=== PATIENT | male | born 1935 | race Caucasian/White ===

== ENCOUNTER 2024-04-04 15:01 | Observation (INO) ==
--- NOTE | 2024-04-04 15:13 | DR.AMS ---
HPI Time Seen Time Seen by Provider: 04/04/24 15:13 COVID-19 Coronavirus risk:travel/contact w/high risk person: No Has patient experienced Coronavirus symptoms: No PMH PMH Past Medical History: Anxiety, Diabetes, Gout and [place] Past Surgical History: Yes Surgical History: Angioplasty/Stents Family History Family Medical History: [place], Heart Failure and Hypertension Social History Do you use any recreational Drugs:: No PE Vitals Vital Signs: Temp Pulse Resp BP Pulse Ox O2 Del Method 04/04/24 19:45 62 04/04/24 19:30 58 L 24 04/04/24 19:30 114/58 04/04/24 19:15 62 22 92 L 04/04/24 19:00 60 24 92 L 04/04/24 19:00 120/75 04/04/24 18:45 56 L 19 93 L 04/04/24 18:30 56 L 24 04/04/24 18:30 116/57 04/04/24 18:15 59 L 25 H 96 04/04/24 18:00 123/58 04/04/24 18:00 123/58 04/04/24 18:00 57 L 22 95 04/04/24 17:45 56 L 24 04/04/24 17:30 56 L 20 95 04/04/24 17:30 116/56 04/04/24 17:15 57 L 20 04/04/24 17:00 57 L 19 04/04/24 17:00 123/58 04/04/24 16:45 56 L 22 95 04/04/24 16:33 56 L 19 98 04/04/24 16:33 139/61 04/04/24 16:32 57 L 97 04/04/24 16:15 59 L 19 95 04/04/24 16:00 57 L 24 92 L 04/04/24 16:00 105/59 04/04/24 15:45 60 93 L 04/04/24 15:30 103/57 04/04/24 15:30 58 L 97 04/04/24 15:29 59 L 96 04/04/24 15:13 98.2 F 61 20 105/59 96 Room Air ROR Labs Reviewed 04/04/24 15:20 04/04/24 15:20 Laboratory: WBC 5.1 X10^3/uL (3.6-10.0) 04/04/24 15:20 RBC 4.24 X10^6/uL (4.7-6.0) L 04/04/24 15:20 Hgb 13.3 g/dL (13.5-18.0) L 04/04/24 15:20 Hct 40.1 % (42.0-54.0) L 04/04/24 15:20 MCV 94.5 fL (80.0-100.0) 04/04/24 15:20 MCH 31.4 pg (27.0-34.0) 04/04/24 15:20 MCHC 33.2 g/dL (33.0-35.0) 04/04/24 15:20 RDW 14.0 % (11.6-16.5) 04/04/24 15:20 Plt Count 141 X10^3/uL (150.0-450.0) L 04/04/24 15:20 MPV 8.3 fL (7.4-11.0) 04/04/24 15:20 Neut % (Auto) 60.8 % (42.0-75.0) 04/04/24 15:20 Lymph % (Auto) 23.5 % (21.0-51.0) 04/04/24 15:20 [place] % (Auto) 13.7 % (0.0-13.0) H 04/04/24 15:20 Eos % (Auto) 1.1 % (0.9-2.9) 04/04/24 15:20 Baso % (Auto) 0.9 % (0.2-1.0) 04/04/24 15:20 Neut # (Auto) 3.1 x10^3/uL (2.2-4.8) 04/04/24 15:20 Lymph # (Auto) 1.2 X10^3/uL (1.3-2.9) L 04/04/24 15:20 [place] # (Auto) 0.7 x10^3/uL (0.3-0.8) 04/04/24 15:20 Eos # (Auto) 0.1 x10^3/uL (0.0-0.2) 04/04/24 15:20 Baso # (Auto) 0.0 X10^3/uL (0.0-0.1) 04/04/24 15:20 Absolute Nucleated RBC 0.1 /100WBC 04/04/24 15:20 Sodium 138 mmol/L (136-145) 04/04/24 15:20 Corrected Sodium 139 mmol/L (136-145) 04/04/24 15:20 Potassium 4.5 mmol/L (3.5-5.1) 04/04/24 15:20 Chloride 103 mmol/L (98-107) 04/04/24 15:20 Carbon Dioxide 32.4 mmol/L (21-32) H 04/04/24 15:20 BUN 17 mg/dL (7-18) 04/04/24 15:20 Creatinine 1.54 mg/dL (0.70-1.30) H 04/04/24 15:20 Est GFR (MDRD) Af Amer 55 (>60) L 04/04/24 15:20 Est GFR (MDRD) Non-Af 46 (>60) L 04/04/24 15:20 Glucose 133 mg/dL (65-99) H 04/04/24 15:20 Calcium 8.6 mg/dL (8.5-10.1) 04/04/24 15:20 Corrected Calcium 9.4 mg/dL (8.5-10.1) 04/04/24 15:20 Magnesium 1.6 mg/dL (2.0-2.9) L 04/04/24 18:00 Total Bilirubin 0.40 mg/dL (0.2-1.0) 04/04/24 15:20 AST 15 Units/L (15-37) 04/04/24 15:20 ALT 20 Units/L (12-78) 04/04/24 15:20 Alkaline Phosphatase 90 Units/L (46-116) 04/04/24 15:20 Creatine Kinase 50 Units/L (39-308) 04/04/24 18:36 Troponin I High Sens 9.8 ng/L (4.0-60.0) 04/04/24 18:36 B-Natriuretic Peptide 79.6 pg/mL (0-79) H 04/04/24 15:20 Total Protein 6.2 g/dL (6.4-8.2) L 04/04/24 15:20 Albumin 3.0 g/dL (3.4-5.0) L 04/04/24 15:20 Globulin 3.2 g/dL (2.5-4.5) 04/04/24 15:20 Albumin/Globulin Ratio 0.9 Ratio (1.1-2.1) L 04/04/24 15:20 SARS-CoV-2 (PCR) Positive (NEGATIVE) A 04/04/24 15:13 Influenza Type A (PCR) Negative (NEGATIVE) 04/04/24 15:13 Influenza Type B (PCR) Negative (NEGATIVE) 04/04/24 15:13 RSV (PCR) Negative (NEGATIVE) 04/04/24 15:13 Opioid Opioid Risk Tool Age (Jimbo box if 16-45): No History of Preadolescent Sexual Abuse: No Total: 0 Total Score Risk Category: Low Risk Copyright: Yimi WANG predicting aberrant behaviors Discharge Plan Diagnosis Discharge Problem: Ataxia, Generalized muscle weakness, COVID-19 virus infection Discharge Plan Patient Disposition: 01 HOME, SELF-CARE Condition: Stable Orders to Discharge Patient Discharge Orders: Transfer (Routine); Ordered 04/04/24 Ordered By: JOSE DANIEL PETE
--- NOTE | 2024-04-04 15:40 | EKG ---
Test Reason : weakness Blood Pressure : */* mmHG Vent. Rate : 58 BPM Atrial Rate : 58 BPM P-R Int : 264 ms QRS Dur : 148 ms QT Int : 444 ms P-R-T Axes : 15 -65 19 degrees QTc Int : 435 ms Sinus bradycardia with 1st degree AV block Left axis deviation Right bundle branch block Abnormal ECG When compared with ECG of 12-MAR-2023 15:49, QT has shortened Confirmed by Chele Guillaume MD ([id number]) on 04/05/2024 7:02:32 AM Referred By: Confirmed By: Chele Guillaume MD
[2024-04-04 15:48] LABS: BASOPHILS % (AUTO) 0.9 % (0.2-1.0); EOSINOPHILS # (AUTO) 0.1 x10^3/uL (0.0-0.2); EOSINOPHILS % (AUTO) 1.1 % (0.9-2.9); HEMATOCRIT 40.1 % (42.0-54.0); HEMOGLOBIN 13.3 g/dL (13.5-18.0); LYMPHOCYTES # (AUTO) 1.2 X10^3/uL (1.3-2.9); LYMPHOCYTES % (AUTO) 23.5 % (21.0-51.0); MEAN CORPUSCULAR HEMOGLOBIN 31.4 pg (27.0-34.0); MEAN CORPUSCULAR HGB CONC 33.2 g/dL (33.0-35.0); MEAN CORPUSCULAR VOLUME 94.5 fL (80.0-100.0); MEAN PLATELET VOLUME 8.3 fL (7.4-11.0); MONOCYTES # (AUTO) 0.7 x10^3/uL (0.3-0.8); MONOCYTES % (AUTO) 13.7 % (0.0-13.0); NEUTROPHILS # (AUTO) 3.1 x10^3/uL (2.2-4.8); NEUTROPHILS % (AUTO) 60.8 % (42.0-75.0); PLATELET COUNT 141 X10^3/uL (150.0-450.0); RED BLOOD COUNT 4.24 X10^6/uL (4.7-6.0); WHITE BLOOD COUNT 5.1 X10^3/uL (3.6-10.0)
[2024-04-04 15:52] LABS: CALCIUM 8.6 mg/dL (8.5-10.1); CARBON DIOXIDE 32.4 mmol/L (21-32); COR CA(FOR HYPOALB) 9.4 mg/dL (8.5-10.1); CREATININE 1.54 mg/dL (0.70-1.30); MAGNESIUM 1.5 mg/dL (2.0-2.9); POTASSIUM 4.5 mmol/L (3.5-5.1); TOTAL PROTEIN 6.2 g/dL (6.4-8.2)
[2024-04-04] MEDS: NS 1,000 ML IV 1,000 ML IV SCH (16:09)
--- NOTE | 2024-04-04 16:51 | CT ---
EXAM: HEAD CT WITHOUT INTRAVENOUS CONTRASTHISTORY: Left-sided weakness and sluggishness. Intermittent confusion.TECHNIQUE: Spiral axial CT images are obtained through the brain without the administration of intravenous contrast. Additional sagittal and coronal reformatted images are reconstructed.DOSIMETRY: Total DLP 893.84 mGycm; CTDI 48 mGyCOMPARISON: Head CT dated March 12, 2023.FINDINGS:There are parenchymal lucencies within the white matter tracks of the centrum semiovale, consistent with chronic sequela of atherosclerotic microvascular ischemic disease. Severe atherosclerosis of the intracranial ICAs and vertebral arteries is seen. Consider follow-up MRA as clinically warranted.There is diffuse cerebral cortical atrophy. Nonspecific pineal gland calcification is seen. The centrum semiovale, basal ganglia, cerebellum, and brainstem are otherwise grossly unremarkable for a noncontrast CT scan. There is no acute intracranial hemorrhage, gross acute infarction, mass lesion, midline shift, or hydrocephalus seen. No extra-axial mass or abnormal fluid collection noted.The calvarium is intact. The partially imaged paranasal sinuses, middle ear cavities and mastoid air cells are clear.IMPRESSION:1. 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 Note that small or subtle acute CVAs can be obscured in this radiologic setting. Consider followup MRI with DWI/ADC imaging to rule out occult acute infarction if clinically warranted.2. Severe atherosclerosis of the intracranial ICAs and vertebral arteries is seen. Consider follow-up MRA as clinically warranted.3. No skull fracture, intracranial hemorrhage, mass lesion, midline shift, or hydrocephalus seen.THIS IS AN ELECTRONICALLY VERIFIED FINAL REPORT04/04/2024 4:48 PM - Electronically signed by Mark Lemon MD
[2024-04-04] MEDS: MAGNESIUM SULFATE 1 GRAM/100 mL PREMIX 1 G/100 ML BAG IV SCH (17:50)
--- NOTE | 2024-04-04 19:03 | RAD ---
EXAM:CHEST, 1 VIEWHISTORY:coughing all night states she woke him up around 1100am this morning and noticed he was a little more sluggish than normal with intermittent confusion and not able to walk good;COMPARISON:March 12, 2023TECHNIQUE:Chest radiographic imaging, AP portable projection, 1 imageFINDINGS:No cardiomegaly.No focal airspace disease.No pleural effusion.No pneumothorax.No acute osseous abnormality.IMPRESSION:No imaging findings of acute cardiopulmonary disease.THIS IS AN ELECTRONICALLY VERIFIED FINAL REPORT04/04/2024 6:59 PM - Electronically signed by Sudheer Mauricio MD
[2024-04-04 22:53] LABS: BILIRUBIN,URINE NEGATIVE (NEGATIVE); BLOOD/HEMOGLOBIN,URINE NEGATIVE (NEGATIVE); GLUCOSE, URINE NEGATIVE (NEGATIVE); KETONES,URINE NEGATIVE (NEGATIVE); LEUKOCYTE ESTERASE ,URINE NEGATIVE (NEGATIVE); NITRITES,URINE NEGATIVE (NEGATIVE); PROTEIN,URINE 1+ (NEGATIVE); UROBILINOGEN,URINE NORMAL (NORMAL)
[2024-04-04 22:57] LABS: APPEARANCE,URINE CLEAR (CLEAR); BACTERIA,URINE NEGATIVE /HPF (NEGATIVE); COLOR,URINE PALE YELLOW (YELLOW); RBC,URINE NONE SEEN /HPF (0-3); SQUAMOUS EPITHELIAL CELL,UR RARE /HPF (NEGATIVE)
[2024-04-04 23:25] VITALS: BMI 29.3
[2024-04-05 06:37] LABS: EOSINOPHILS # (AUTO) 0.1 x10^3/uL (0.0-0.2); EOSINOPHILS % (AUTO) 2.4 % (0.9-2.9); HEMATOCRIT 41.2 % (42.0-54.0); HEMOGLOBIN 13.6 g/dL (13.5-18.0); LYMPHOCYTES # (AUTO) 1.5 X10^3/uL (1.3-2.9); LYMPHOCYTES % (AUTO) 33.6 % (21.0-51.0); MEAN CORPUSCULAR HEMOGLOBIN 31.2 pg (27.0-34.0); MEAN CORPUSCULAR HGB CONC 33.1 g/dL (33.0-35.0); MEAN CORPUSCULAR VOLUME 94.4 fL (80.0-100.0); MEAN PLATELET VOLUME 8.2 fL (7.4-11.0); MONOCYTES # (AUTO) 0.8 x10^3/uL (0.3-0.8); MONOCYTES % (AUTO) 19.1 % (0.0-13.0); NEUTROPHILS # (AUTO) 1.9 x10^3/uL (2.2-4.8); NEUTROPHILS % (AUTO) 43.9 % (42.0-75.0); PLATELET COUNT 145 X10^3/uL (150.0-450.0); RED BLOOD COUNT 4.36 X10^6/uL (4.7-6.0); RED CELL DISTRIBUTION WIDTH 14.4 % (11.6-16.5); WHITE BLOOD COUNT 4.4 X10^3/uL (3.6-10.0)
[2024-04-05 07:01] LABS: ALANINE AMINOTRANSFERASE 26 Units/L (12-78); ALBUMIN 2.8 g/dL (3.4-5.0); ALKALINE PHOSPHATASE 88 Units/L (46-116); ASPARTATE AMINO TRANSFERASE 23 Units/L (15-37); BLOOD UREA NITROGEN 14 mg/dL (7-18); CALCIUM 8.6 mg/dL (8.5-10.1); CHLORIDE 106 mmol/L (98-107); COR CA(FOR HYPOALB) 9.6 mg/dL (8.5-10.1); CREATININE 1.44 mg/dL (0.70-1.30); GLUCOSE 76 mg/dL (65-99); MAGNESIUM 1.8 mg/dL (2.0-2.9); POTASSIUM 3.9 mmol/L (3.5-5.1); SODIUM 141 mmol/L (136-145); TOTAL PROTEIN 6.1 g/dL (6.4-8.2); eGFR NON BLACK RACES 49 (>60)
[2024-04-05] MEDS ORDERED: NovoLIN R (or HumuLIN R) SUBCUT PRN (08:36)
[2024-04-05] MEDS: ELIQUIS PO SCH (10:13)
[2024-04-05] MEDS: COREG TAB 12.5 MG PO SCH (10:13)
[2024-04-05] MEDS: NAMENDA TAB 10 MG PO SCH (10:14)
[2024-04-05] MEDS: PROTONIX TAB 40 MG PO SCH (10:14)
[2024-04-05] MEDS: WELLBUTRIN XL 300 MG (DAILY) PO SCH (10:14)
[2024-04-05] MEDS: IMDUR PO SCH (10:14)
[2024-04-05] MEDS: ZETIA TAB 10 MG PO SCH ×2 (10:16→21:11)
[2024-04-05] MEDS: RITONAVIR PO SCH (10:52)
[2024-04-05] MEDS: NIRMATRELVIR PO SCH (10:52)
[2024-04-05] MEDS: FLOMAX PO SCH (11:05)
--- NOTE | 2024-04-05 11:19 | DR.H&P ---
H&P History & Physical for Day of: H&P Date: 04/05/24 Chief Complaint Chief Complaint: leg weakness, unsteady gait History of Present Illness History of Present Illness: Mr Mccarty is a 88y/o male with a PMH of dementia, CAD, Type 2 DM, HTN, HLD, gout and GERD presented with worsening weakness and unsteadiness. He was doing well until yesterday when he could not stand up. He was having increased weakness in his legs and felt unsteady. He was not able to ambulate so was brought to the ER. He reports some cough, denies any other URI symptoms or N/V/D. He had been exposed to COVID, did a at home test Thursday which was negative. Denies any other neurological deficits. ER work up showed elevated BUN/Cr, low Mag. UA was neg. COVID positive. 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 CXR did not show any acute changes. He was started on IV fluids and admitted for further management. He reports good strength in both legs. He has not tried to stand up today. Labs/imaging reviewed: -WBC 4.4 Hgb 13.6 Plt 145 K 3.9 BUN/Cr 14/1.44 Mag 1.8 -UA neg -COVID + -CXR: no acute changes -CT-brain reviewed Plan: continue hydration, replace electrolytes as per protocol. Will start Paxlovid. Add nebs and pulmicort prn. Will order MRI-brain and MRA for further evaluation. PT consult. Resume home medications. Monitor AM labs/imaging. Past Medical History Past Medical History: Anxiety, Diabetes, Gout and [place] Past Surgical History Surgical History: TURP Family History Family Medical History: Diabetes Mellitus and Heart Failure Social History Does patient currently use any type of tobacco product: No Have you used tobacco products in the last 12 months: No Type of Tobacco Use: None Does any household member use tobacco: No Alcohol Use: None Drug Use: None Medications Home Medications: Home Medications Medication Instructions Recorded Confirmed Type apixaban 5 mg tablet (Eliquis) 5 mg PO BID 03/12/23 04/04/24 History bupropion HCl 300 mg 24 hr tablet, 300 mg PO QAM 03/12/23 04/04/24 History extended release carvedilol 6.25 mg tablet 12.5 mg PO BID 03/12/23 04/04/24 History ezetimibe 10 mg tablet 10 mg PO QDAY 03/12/23 04/04/24 History isosorbide mononitrate 30 mg 60 mg PO QAM 03/12/23 04/04/24 History tablet,extended release 24 hr memantine 10 mg tablet 10 mg PO BID 03/12/23 04/04/24 History pantoprazole 20 mg tablet,delayed 20 mg PO BID 03/12/23 04/04/24 History release quetiapine 25 mg tablet 50 mg PO HS 03/12/23 04/04/24 History rosuvastatin 5 mg tablet 10 mg PO QDAY 03/12/23 04/04/24 History tirzepatide 10 mg/0.5 mL 10 mg subcut QWEEK 03/12/23 04/04/24 History subcutaneous pen injector (Vivek) allopurinol 100 mg tablet 100 mg PO QDAY 04/04/24 04/04/24 History insulin aspart U-100 100 unit/mL See Rx Instructions .Route 04/04/24 04/04/24 History subcutaneous solution (Novolog .COMPLEX PRN U-100 Insulin aspart) tamsulosin 0.4 mg capsule 0.4 mg PO QDAY 04/04/24 04/04/24 History Allergies Allergies Allergy/AdvReac Type Severity Reaction Status Date / Time No Known Allergies Allergy Verified 03/12/23 15:55 Labs 04/05/24 05:51 04/05/24 05:51 Labs: Laboratory WBC 4.4 X10^3/uL (3.6-10.0) 04/05/24 05:51 RBC 4.36 X10^6/uL (4.7-6.0) L 04/05/24 05:51 Hgb 13.6 g/dL (13.5-18.0) 04/05/24 05:51 Hct 41.2 % (42.0-54.0) L 04/05/24 05:51 MCV 94.4 fL (80.0-100.0) 04/05/24 05:51 MCH 31.2 pg (27.0-34.0) 04/05/24 05:51 MCHC 33.1 g/dL (33.0-35.0) 04/05/24 05:51 RDW 14.4 % (11.6-16.5) 04/05/24 05:51 Plt Count 145 X10^3/uL (150.0-450.0) L 04/05/24 05:51 MPV 8.2 fL (7.4-11.0) 04/05/24 05:51 Neut % (Auto) 43.9 % (42.0-75.0) 04/05/24 05:51 Lymph % (Auto) 33.6 % (21.0-51.0) 04/05/24 05:51 [place] % (Auto) 19.1 % (0.0-13.0) H 04/05/24 05:51 Eos % (Auto) 2.4 % (0.9-2.9) 04/05/24 05:51 Baso % (Auto) 1.0 % (0.2-1.0) 04/05/24 05:51 Neut # (Auto) 1.9 x10^3/uL (2.2-4.8) L 04/05/24 05:51 Lymph # (Auto) 1.5 X10^3/uL (1.3-2.9) 04/05/24 05:51 [place] # (Auto) 0.8 x10^3/uL (0.3-0.8) 04/05/24 05:51 Eos # (Auto) 0.1 x10^3/uL (0.0-0.2) 04/05/24 05:51 Baso # (Auto) 0.0 X10^3/uL (0.0-0.1) 04/05/24 05:51 Absolute Nucleated RBC 0.1 /100WBC 04/05/24 05:51 Sodium 141 mmol/L (136-145) 04/05/24 05:51 Corrected Sodium TNP 04/05/24 05:51 Potassium 3.9 mmol/L (3.5-5.1) 04/05/24 05:51 Chloride 106 mmol/L (98-107) 04/05/24 05:51 Carbon Dioxide 30.0 mmol/L (21-32) 04/05/24 05:51 BUN 14 mg/dL (7-18) 04/05/24 05:51 Creatinine 1.44 mg/dL (0.70-1.30) H 04/05/24 05:51 Est GFR (MDRD) Af Amer 60 (>60) 04/05/24 05:51 Est GFR (MDRD) Non-Af 49 (>60) L 04/05/24 05:51 Glucose 76 mg/dL (65-99) 04/05/24 05:51 Calcium 8.6 mg/dL (8.5-10.1) 04/05/24 05:51 Corrected Calcium 9.6 mg/dL (8.5-10.1) 04/05/24 05:51 Magnesium 1.8 mg/dL (2.0-2.9) L 04/05/24 05:51 Total Bilirubin 0.30 mg/dL (0.2-1.0) 04/05/24 05:51 AST 23 Units/L (15-37) 04/05/24 05:51 ALT 26 Units/L (12-78) 04/05/24 05:51 Alkaline Phosphatase 88 Units/L (46-116) 04/05/24 05:51 Creatine Kinase 50 Units/L (39-308) 04/04/24 18:36 Troponin I High Sens 9.8 ng/L (4.0-60.0) 04/04/24 18:36 B-Natriuretic Peptide 79.6 pg/mL (0-79) H 04/04/24 15:20 Total Protein 6.1 g/dL (6.4-8.2) L 04/05/24 05:51 Albumin 2.8 g/dL (3.4-5.0) L 04/05/24 05:51 Globulin 3.3 g/dL (2.5-4.5) 04/05/24 05:51 Albumin/Globulin Ratio 0.8 Ratio (1.1-2.1) L 04/05/24 05:51 Specimen Type Clean catch urine 04/04/24 22:43 Urine Color Pale yellow (YELLOW) 04/04/24 22:43 Urine Appearance Clear (CLEAR) 04/04/24 22:43 Urine pH 7.0 (5.0 - 8.0) 04/04/24 22:43 Ur Specific [place] 1.010 (1.000-1.030) 04/04/24 22:43 Urine Protein 1+ (NEGATIVE) 04/04/24 22:43 Urine Glucose (UA) Negative (NEGATIVE) 04/04/24 22:43 Urine Ketones Negative (NEGATIVE) 04/04/24 22:43 Urine Blood Negative (NEGATIVE) 04/04/24 22:43 Urine Nitrite Negative (NEGATIVE) 04/04/24 22:43 Urine Bilirubin Negative (NEGATIVE) 04/04/24 22:43 Urine Urobilinogen Normal (NORMAL) 04/04/24 22:43 Ur Leukocyte Esterase Negative (NEGATIVE) 04/04/24 22:43 Urine RBC None seen /HPF (0-3) 04/04/24 22:43 Urine WBC None seen /HPF (0-5) 04/04/24 22:43 Ur Squamous Epith Cells Rare /HPF (NEGATIVE) 04/04/24 22:43 Urine Bacteria Negative /HPF (NEGATIVE) 04/04/24 22:43 Ur Culture Indicated? No/not indicated 04/04/24 22:43 SARS-CoV-2 (PCR) Positive (NEGATIVE) A 04/04/24 15:13 Influenza Type A (PCR) Negative (NEGATIVE) 04/04/24 15:13 Influenza Type B (PCR) Negative (NEGATIVE) 04/04/24 15:13 RSV (PCR) Negative (NEGATIVE) 04/04/24 15:13 Review of Systems Constitutional: Weakness Eyes: No Symptoms Reported ENT: No Symptoms Reported Respiratory: Cough Cardiovascular: No Symptoms Reported Gastrointestinal: No Symptoms Reported Genitourinary: No Symptoms Reported Musculoskeletal: Leg Pain Skin: No Symptoms Reported Neurological: No Symptoms Reported Physical Exam Vital Signs: Vital Signs Temperature 98.8 F Pulse Rate [Right Radial] 57 Respiratory Rate 21 Blood Pressure [Right Arm] 134/62 O2 Sat by Pulse Oximetry 99 Oriented: Normal Ear: Normal Nose: Normal Throat: Normal Respiratory: Clear Throughout Cardiovascular: Normal Auscultation: Bowel Sounds: Normal Palpation: Normal Tenderness: Normal Skin: Normal Musculoskeletal: Normal Psychiatric: Normal Mood Description: Calm Affect: Normal Speech Pattern: Clear and Appropriate Assessment/Plan (1) COVID-19 virus infection: Status: Acute (2) Ataxia: Status: Acute (3) Dizziness: Status: Acute (4) Hypomagnesemia: Status: Acute (5) Generalized muscle weakness: Status: Acute (6) Essential hypertension: Status: Acute (7) CAD (coronary artery disease): Qualifiers: Coronary Disease-Associated Artery/Lesion type: [place] artery [place] vs. transplanted heart: [place] heart Associated angina: without angina Qu alified Code(s): I25.10 - Atherosclerotic heart disease of [place] coronary artery without angina pectoris Status: Acute (8) Dementia: Qualifiers: Dementia type: unspecified type Dementia severity: unspecified severity Dementia behavioral or psychological symptom: unspecified whether behavioral, psychotic, or mood disturbance or anxiety Qualified Code(s): F03.90 - Unspecified dementia, unspecified severity, without behavioral disturbance, psychotic disturbance, mood disturbance, and anxiety Status: Acute (9) Type 2 diabetes mellitus: Qualifiers: Diabetes mellitus char conveyor tender insulin use: with char conveyor tender use Diabetes mellitus complication status: with hyperglycemia Qualified Code(s): E11.65 - T ype 2 diabetes mellitus with hyperglycemia; Z79.4 - shelter (current) use of insulin Status: Acute Review H&P Reviewed: Yes Patient was examined?: Yes
[2024-04-05] MEDS: PULMICORT NEB TX 0.5 MG NEB SCH (11:27)
[2024-04-05] MEDS: DUONEB 0.5 MG/3 MG (3 mL) NEB SCH (13:35)
[2024-04-05] MEDS: DUONEB 0.5 MG/3 MG (3 mL) NEB ONE (17:22)
[2024-04-05] MEDS: ROBITUSSIN DM PO PRN (18:21)
[2024-04-05] MEDS: SNACK - Diabetic Appropriate PO SCH (21:00)
[2024-04-05] MEDS ORDERED: CRESTOR TAB 10 MG PO SCH (21:00)
[2024-04-05] MEDS: SEROquel TAB 25 mg PO SCH (21:10)
[2024-04-06 00:03] VITALS: RESP 18
[2024-04-06] MEDS: TYLENOL 325 MG TAB PO PRN (00:09)
[2024-04-06 04:22] VITALS: BP 118/58
[2024-04-06 06:11] LABS: BASOPHILS % (AUTO) 0.8 % (0.2-1.0); EOSINOPHILS # (AUTO) 0.2 x10^3/uL (0.0-0.2); EOSINOPHILS % (AUTO) 5.5 % (0.9-2.9); HEMATOCRIT 36.9 % (42.0-54.0); HEMOGLOBIN 12.1 g/dL (13.5-18.0); LYMPHOCYTES % (AUTO) 42.9 % (21.0-51.0); MEAN CORPUSCULAR HEMOGLOBIN 31.1 pg (27.0-34.0); MEAN CORPUSCULAR HGB CONC 32.9 g/dL (33.0-35.0); MEAN CORPUSCULAR VOLUME 94.5 fL (80.0-100.0); MEAN PLATELET VOLUME 8.4 fL (7.4-11.0); MONOCYTES # (AUTO) 0.7 x10^3/uL (0.3-0.8); MONOCYTES % (AUTO) 15.9 % (0.0-13.0); NEUTROPHILS # (AUTO) 1.6 x10^3/uL (2.2-4.8); NEUTROPHILS % (AUTO) 34.9 % (42.0-75.0); PLATELET COUNT 129 X10^3/uL (150.0-450.0); RED BLOOD COUNT 3.91 X10^6/uL (4.7-6.0); RED CELL DISTRIBUTION WIDTH 14.5 % (11.6-16.5); WHITE BLOOD COUNT 4.6 X10^3/uL (3.6-10.0)
[2024-04-06 06:24] LABS: ALANINE AMINOTRANSFERASE 29 Units/L (12-78); ALBUMIN 2.3 g/dL (3.4-5.0); ALKALINE PHOSPHATASE 75 Units/L (46-116); ASPARTATE AMINO TRANSFERASE 26 Units/L (15-37); BLOOD UREA NITROGEN 16 mg/dL (7-18); CALCIUM 7.8 mg/dL (8.5-10.1); CARBON DIOXIDE 27.2 mmol/L (21-32); CHLORIDE 109 mmol/L (98-107); COR CA(FOR HYPOALB) 9.2 mg/dL (8.5-10.1); CREATININE 1.39 mg/dL (0.70-1.30); GLUCOSE 92 mg/dL (65-99); MAGNESIUM 1.5 mg/dL (2.0-2.9); POTASSIUM 4.1 mmol/L (3.5-5.1); SODIUM 141 mmol/L (136-145); TOTAL PROTEIN 5.3 g/dL (6.4-8.2); eGFR NON BLACK RACES 51 (>60)
[2024-04-06] MEDS ORDERED: CONSULT PHARMACY - POTASSIUM & MAGNESIUM XX SCH (07:00)
[2024-04-06 09:00] VITALS: O2SAT 99
[2024-04-06 11:51] VITALS: PULSE 56; TEMP 97.9
[2024-04-06] MEDS: MAG-OX TAB PO SCH (11:59)
--- NOTE | 2024-04-11 10:00 | W.DIS.FURT ---
Summary of Discharge Discharge Summary of Date Date of Exam: 04/06/24 Admission Date Date of Admission: 04/04/24 Admission Diagnosis Patient Problems (Updated 04/05/24 @ 11:19 by Dianna Felix) Ataxia (Acute) R27.0 Generalized muscle weakness (Acute) M62.81 COVID-19 virus infection (Acute) U07.1 Hospital Course: Mr Mccarty is a 88y/o male with a PMH of dementia, CAD, Type 2 DM, HTN, HLD, gout and GERD presented with worsening weakness and unsteadiness. He was doing well until yesterday when he could not stand up. He was having increased weakness in his legs and felt unsteady. He was not able to ambulate so was brought to the ER. He reports some cough, denies any other URI symptoms or N/V/D. He had been exposed to COVID, did a at home test Thursday which was negative. Denies any other neurological deficits. ER work up showed elevated BUN/Cr, low Mag. UA was neg. COVID positive. 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 CXR di d not show any acute changes. He was started on IV fluids and admitted for further management. He was also started on Paxlovid. Labs were monitored daily and electrolytes replaced as needed. He reported good strength in both legs. Patient and family declined MRI at this time as patient was back to his baseline. He was able to ambulate with PT. He already has PT set up for home. He was stable for discharge and will f/u with PCP as scheduled. Vital Signs: Vital Signs (72 hours) 04/04/24 15:13 04/04/24 15:29 04/04/24 15:30 Temperature 98.2 F Pulse Rate 61 59 L 58 L Pulse Rate [Right Radial] Respiratory Rate 20 Blood Pressure 105/59 Blood Pressure [Right Arm] O2 Sat by Pulse Oximetry 96 96 97 Oxygen Delivery Method Room Air Oxygen Flow Rate FIO2% 04/04/24 15:30 04/04/24 15:45 04/04/24 16:00 Temperature Pulse Rate 60 Pulse Rate [Right Radial] Respiratory Rate Blood Pressure 103/57 105/59 Blood Pressure [Right Arm] O2 Sat by Pulse Oximetry 93 L Oxygen Delivery Method Oxygen Flow Rate FIO2% 04/04/24 16:00 04/04/24 16:15 04/04/24 16:32 Temperature Pulse Rate 57 L 59 L 57 L Pulse Rate [Right Radial] Respiratory Rate 24 19 Blood Pressure Blood Pressure [Right Arm] O2 Sat by Pulse Oximetry 92 L 95 97 Oxygen Delivery Method Oxygen Flow Rate FIO2% 04/04/24 16:33 04/04/24 16:33 04/04/24 16:45 Temperature Pulse Rate 56 L 56 L Pulse Rate [Right Radial] Respiratory Rate 19 22 Blood Pressure 139/61 Blood Pressure [Right Arm] O2 Sat by Pulse Oximetry 98 95 Oxygen Delivery Method Oxygen Flow Rate FIO2% 04/04/24 17:00 04/04/24 17:00 04/04/24 17:15 Temperature Pulse Rate 57 L 57 L Pulse Rate [Right Radial] Respiratory Rate 19 20 Blood Pressure 123/58 Blood Pressure [Right Arm] O2 Sat by Pulse Oximetry Oxygen Delivery Method Oxygen Flow Rate FIO2% 04/04/24 17:30 04/04/24 17:30 04/04/24 17:45 Temperature Pulse Rate 56 L 56 L Pulse Rate [Right Radial] Respiratory Rate 20 24 Blood Pressure 116/56 Blood Pressure [Right Arm] O2 Sat by Pulse Oximetry 95 Oxygen Delivery Method Oxygen Flow Rate FIO2% 04/04/24 18:00 04/04/24 18:00 04/04/24 18:00 Temperature Pulse Rate 57 L Pulse Rate [Right Radial] Respiratory Rate 22 Blood Pressure 123/58 123/58 Blood Pressure [Right Arm] O2 Sat by Pulse Oximetry 95 Oxygen Delivery Method Oxygen Flow Rate FIO2% 04/04/24 18:15 04/04/24 18:30 04/04/24 18:30 Temperature Pulse Rate 59 L 56 L Pulse Rate [Right Radial] Respiratory Rate 25 H 24 Blood Pressure 116/57 Blood Pressure [Right Arm] O2 Sat by Pulse Oximetry 96 Oxygen Delivery Method Oxygen Flow Rate FIO2% 04/04/24 18:45 04/04/24 19:00 04/04/24 19:00 Temperature Pulse Rate 56 L 60 Pulse Rate [Right Radial] Respiratory Rate 19 24 Blood Pressure 120/75 Blood Pressure [Right Arm] O2 Sat by Pulse Oximetry 93 L 92 L Oxygen Delivery Method Oxygen Flow Rate FIO2% 04/04/24 19:15 04/04/24 19:30 04/04/24 19:30 Temperature Pulse Rate 62 58 L Pulse Rate [Right Radial] Respiratory Rate 22 24 Blood Pressure 114/58 Blood Pressure [Right Arm] O2 Sat by Pulse Oximetry 92 L Oxygen Delivery Method Oxygen Flow Rate FIO2% 04/04/24 19:45 04/04/24 20:00 04/04/24 20:01 Temperature Pulse Rate 62 59 L 59 L Pulse Rate [Right Radial] Respiratory Rate 25 H 23 Blood Pressure Blood Pressure [Right Arm] O2 Sat by Pulse Oximetry 92 L 95 Oxygen Delivery Method Oxygen Flow Rate FIO2% 04/04/24 20:01 04/04/24 20:01 04/04/24 20:15 Temperature Pulse Rate 61 Pulse Rate [Right Radial] Respiratory Rate 20 Blood Pressure 117/61 117/61 Blood Pressure [Right Arm] O2 Sat by Pulse Oximetry 85 L Oxygen Delivery Method Oxygen Flow Rate FIO2% 04/04/24 20:30 04/04/24 20:31 04/04/24 20:31 Temperature Pulse Rate 58 L 58 L Pulse Rate [Right Radial] Respiratory Rate 24 23 Blood Pressure 84/52 Blood Pressure [Right Arm] O2 Sat by Pulse Oximetry Oxygen Delivery Method Oxygen Flow Rate FIO2% 04/04/24 20:46 04/04/24 21:21 04/04/24 21:24 Temperature 98.3 F Pulse Rate Pulse Rate [Right Radial] 59 L Respiratory Rate 22 22 Blood Pressure Blood Pressure [Right Arm] 143/63 O2 Sat by Pulse Oximetry 96 Oxygen Delivery Method Room Air Room Air Oxygen Flow Rate FIO2% 04/04/24 21:40 04/04/24 23:43 04/05/24 03:42 Temperature 98.3 F 98.8 F Pulse Rate Pulse Rate [Right Radial] 64 57 L Respiratory Rate 22 21 Blood Pressure Blood Pressure [Right Arm] 158/71 134/62 O2 Sat by Pulse Oximetry 96 99 Oxygen Delivery Method Room Air Room Air Room Air Oxygen Flow Rate FIO2% 04/05/24 08:20 04/05/24 08:00 04/05/24 07:00 Temperature 98.9 F Pulse Rate Pulse Rate [Right Radial] 58 L Respiratory Rate 20 Blood Pressure Blood Pressure [Right Arm] 131/63 O2 Sat by Pulse Oximetry 92 L Oxygen Delivery Method Room Air Room Air Room Air Oxygen Flow Rate FIO2% 04/05/24 12:00 04/05/24 13:35 04/05/24 16:00 Temperature 98.6 F 98.1 F Pulse Rate 53 L Pulse Rate [Right Radial] 53 L 50 L Respiratory Rate 18 20 Blood Pressure Blood Pressure [Right Arm] 128/56 125/60 O2 Sat by Pulse Oximetry 96 96 95 Oxygen Delivery Method Room Air Room Air Oxygen Flow Rate FIO2% 04/05/24 19:56 04/06/24 00:09 04/05/24 19:00 Temperature 98.0 F Pulse Rate Pulse Rate [Right Radial] 60 Respiratory Rate 19 18 Blood Pressure Blood Pressure [Right Arm] 129/61 O2 Sat by Pulse Oximetry 97 Oxygen Delivery Method Room Air Nasal Cannula Oxygen Flow Rate 2 FIO2% 04/05/24 21:00 04/05/24 20:45 04/06/24 00:00 Temperature 98.0 F Pulse Rate 50 L Pulse Rate [Right Radial] 65 Respiratory Rate 18 Blood Pressure Blood Pressure [Right Arm] 144/66 O2 Sat by Pulse Oximetry 96 99 Oxygen Delivery Method Nasal Cannula Room Air Oxygen Flow Rate 2 FIO2% 28 04/06/24 01:09 04/06/24 04:00 04/06/24 06:15 Temperature 97.6 F Pulse Rate 50 L Pulse Rate [Right Radial] 61 Respiratory Rate 18 18 Blood Pressure Blood Pressure [Right Arm] 118/58 O2 Sat by Pulse Oximetry 95 98 Oxygen Delivery Method Room Air Oxygen Flow Rate FIO2% 04/06/24 08:59 04/06/24 10:38 Temperature Pulse Rate 52 L Pulse Rate [Right Radial] Respiratory Rate Blood Pressure Blood Pressure [Right Arm] O2 Sat by Pulse Oximetry 99 Oxygen Delivery Method Room Air Oxygen Flow Rate FIO2% Labs: Laboratory Last Values WBC 4.6 X10^3/uL (3.6-10.0) 04/06/24 05:40 RBC 3.91 X10^6/uL (4.7-6.0) L 04/06/24 05:40 Hgb 12.1 g/dL (13.5-18.0) L 04/06/24 05:40 Hct 36.9 % (42.0-54.0) L 04/06/24 05:40 MCV 94.5 fL (80.0-100.0) 04/06/24 05:40 MCH 31.1 pg (27.0-34.0) 04/06/24 05:40 MCHC 32.9 g/dL (33.0-35.0) L 04/06/24 05:40 RDW 14.5 % (11.6-16.5) 04/06/24 05:40 Plt Count 129 X10^3/uL (150.0-450.0) L 04/06/24 05:40 MPV 8.4 fL (7.4-11.0) 04/06/24 05:40 Neut % (Auto) 34.9 % (42.0-75.0) L 04/06/24 05:40 Lymph % (Auto) 42.9 % (21.0-51.0) 04/06/24 05:40 [place] % (Auto) 15.9 % (0.0-13.0) H 04/06/24 05:40 Eos % (Auto) 5.5 % (0.9-2.9) H 04/06/24 05:40 Baso % (Auto) 0.8 % (0.2-1.0) 04/06/24 05:40 Neut # (Auto) 1.6 x10^3/uL (2.2-4.8) L 04/06/24 05:40 Lymph # (Auto) 2.0 X10^3/uL (1.3-2.9) 04/06/24 05:40 [place] # (Auto) 0.7 x10^3/uL (0.3-0.8) 04/06/24 05:40 Eos # (Auto) 0.2 x10^3/uL (0.0-0.2) 04/06/24 05:40 Baso # (Auto) 0.0 X10^3/uL (0.0-0.1) 04/06/24 05:40 Absolute Nucleated RBC 0.1 /100WBC 04/06/24 05:40 Sodium 141 mmol/L (136-145) 04/06/24 05:40 Corrected Sodium TNP 04/06/24 05:40 Potassium 4.1 mmol/L (3.5-5.1) 04/06/24 05:40 Chloride 109 mmol/L (98-107) H 04/06/24 05:40 Carbon Dioxide 27.2 mmol/L (21-32) 04/06/24 05:40 BUN 16 mg/dL (7-18) 04/06/24 05:40 Creatinine 1.39 mg/dL (0.70-1.30) H 04/06/24 05:40 Est GFR (MDRD) Af Amer > 60 (>60) 04/06/24 05:40 Est GFR (MDRD) Non-Af 51 (>60) L 04/06/24 05:40 Glucose 92 mg/dL (65-99) 04/06/24 05:40 POC Glucose (mg/dL) 162 mg/dL (65-99) H 04/05/24 20:00 Calcium 7.8 mg/dL (8.5-10.1) L 04/06/24 05:40 Corrected Calcium 9.2 mg/dL (8.5-10.1) 04/06/24 05:40 Magnesium 1.5 mg/dL (2.0-2.9) L 04/06/24 05:40 Total Bilirubin 0.30 mg/dL (0.2-1.0) 04/06/24 05:40 AST 26 Units/L (15-37) 04/06/24 05:40 ALT 29 Units/L (12-78) 04/06/24 05:40 Alkaline Phosphatase 75 Units/L (46-116) 04/06/24 05:40 Creatine Kinase 50 Units/L (39-308) 04/04/24 18:36 Troponin I High Sens 9.8 ng/L (4.0-60.0) 04/04/24 18:36 B-Natriuretic Peptide 79.6 pg/mL (0-79) H 04/04/24 15:20 Total Protein 5.3 g/dL (6.4-8.2) L 04/06/24 05:40 Albumin 2.3 g/dL (3.4-5.0) L 04/06/24 05:40 Globulin 3.0 g/dL (2.5-4.5) 04/06/24 05:40 Albumin/Globulin Ratio 0.8 Ratio (1.1-2.1) L 04/06/24 05:40 Specimen Type Clean catch urine 04/04/24 22:43 Urine Color Pale yellow (YELLOW) 04/04/24 22:43 Urine Appearance Clear (CLEAR) 04/04/24 22:43 Urine pH 7.0 (5.0 - 8.0) 04/04/24 22:43 Ur Specific Sieper 1.010 (1.000-1.030) 04/04/24 22:43 Urine Protein 1+ (NEGATIVE) 04/04/24 22:43 Urine Glucose (UA) Negative (NEGATIVE) 04/04/24 22:43 Urine Ketones Negative (NEGATIVE) 04/04/24 22:43 Urine Blood Negative (NEGATIVE) 04/04/24 22:43 Urine Nitrite Negative (NEGATIVE) 04/04/24 22:43 Urine Bilirubin Negative (NEGATIVE) 04/04/24 22:43 Urine Urobilinogen Normal (NORMAL) 04/04/24 22:43 Ur Leukocyte Esterase Negative (NEGATIVE) 04/04/24 22:43 Urine RBC None seen /HPF (0-3) 04/04/24 22:43 Urine WBC None seen /HPF (0-5) 04/04/24 22:43 Ur Squamous Epith Cells Rare /HPF (NEGATIVE) 04/04/24 22:43 Urine Bacteria Negative /HPF (NEGATIVE) 04/04/24 22:43 Ur Culture Indicated? No/not indicated 04/04/24 22:43 SARS-CoV-2 (PCR) Positive (NEGATIVE) A 04/04/24 15:13 Influenza Type A (PCR) Negative (NEGATIVE) 04/04/24 15:13 Influenza Type B (PCR) Negative (NEGATIVE) 04/04/24 15:13 RSV (PCR) Negative (NEGATIVE) 04/04/24 15:13 Reason For Visit: ATAXIA, GENERALIZED MUSCLE, HYPOMAGNESEMIA, Discharge Diagnosis All Active Problems (Updated 04/05/24 @ 11:19 by Dianna Felix) Hypomagnesemia (Acute) Type 2 diabetes mellitus (Acute) Dementia (Acute) CAD (coronary artery disease) (Acute) Dizziness (Acute) Essential hypertension (Acute) Ataxia (Acute) Generalized muscle weakness (Acute) COVID-19 virus infection (Acute) Plan of Treatment: Continue with present treatment and follow up plan. Pt is to keep follow up appointment as instructed and take medications as ordered. Discharge Medications Discharge Medications: No Known Allergies Allergy (Verified 03/12/23 15:55) CONTINUE taking the following medications allopurinol 100 mg tablet 100 mg PO QDAY 04/04/24 [History] insulin aspart U-100 100 unit/mL subcutaneous solution (Novolog U-100 Insulin aspart) See Rx Instructions .Route .COMPLEX PRN 04/04/24 [History] tamsulosin 0.4 mg capsule 0.4 mg PO QDAY 04/04/24 [History] New Prescriptions ipratropium 0.5 mg-albuterol 3 mg (2.5 mg base)/3 mL nebulization soln 3 ml NEB TID 10 days #90 mL 04/06/24 [Rx] magnesium oxide 400 mg (241.3 mg magnesium) tablet 400 mg PO BID 5 days #10 tabs 04/06/24 [Rx] nebulizer accessories (AIRS Adult Aerosol Mask) #1 ea 04/06/24 [Rx] nebulizer and compressor #1 ea 04/06/24 [Rx] nirmatrelvir 300 mg (150 mg x2)-ritonavir 100 mg tablet,dose pack (Paxlovid) 1 ea PO BID 3 days #6 doses 04/06/24 [Rx] Discharge Disposition Assessment: No acute distress noted. Discharge Disposition: home with home health Discharge Condition: stable Discharge Plan Discharge Plan Hospital Course: Mr Mccarty is a 88y/o male with a PMH of dementia, CAD, Type 2 DM, HTN, HLD, gout and GERD presented with worsening weakness and unsteadiness. He was doing well until yesterday when he could not stand up. He was having increased we akness in his legs and felt unsteady. He was not able to ambulate so was brought to the ER. He reports some cough, denies any other URI symptoms or N/V/D. He had been exposed to COVID, did a at home test Thursday which was negative. Denies any other neurological deficits. ER work up showed elevated BUN/Cr, low Mag. UA was neg. COVID positive. 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 CXR did not show any acute changes. He was started on IV fluids and admitted for further management. He was also started on Paxlovid. Labs were monitored daily and electrolytes replaced as needed. He reported good strength in both legs. Patient and family declined MRI at this time as patient was back to his baseline. He was able to ambulate with PT. He already has PT set up for home. He was stable for discharge and will f/u with PCP as scheduled. Patient Disposition: HOME HEALTH SERVICE Condition: Stable Health Concerns: Post Hospitalization: new medications and changes needed to prevent readmission or further decline. Pt educated and given instructions on all concerns. Care Plan Goals: Problem: Activity Intolerance Goal: Increased tolerance to activity Instructions: Follow provided instructions. Follow up with primary physician as directed. Contact primary care physician or report to the closest Emergency Room if condition worsens. Plan of Treatment: Continue with present treatment and follow up plan. Pt is to keep follow up appointment as instructed and take medications as ordered. Assessment: No acute distress noted. Prescription drug monitoring program results: PDMP reviewed and no concerns identified Prescriptions: New ipratropium-albuterol 0.5 mg-3 mg(2.5 mg base)/3 mL Solution For Nebulization 3 ml NEB TID 10 Days Qty: 90 0RF Continued quetiapine 25 mg tablet 50 mg PO HS carvedilol 6.25 mg tablet 12.5 mg PO BID isosorbide mononitrate 30 mg tablet extended release 24 hr 60 mg PO QAM pantoprazole 20 mg tablet,delayed release (DR/EC) 20 mg PO BID ezetimibe 10 mg tablet 10 mg PO QDAY rosuvastatin 5 mg tablet 10 mg PO QDAY bupropion HCl 300 mg tablet extended release 24 hr 300 mg PO QAM memantine 10 mg tablet 10 mg PO BID Eliquis 5 mg tablet 5 mg PO BID Mounjaro 10 mg/0.5 mL pen injector 10 mg SUBCUT QWEEK allopurinol 100 mg tablet 100 mg PO QDAY tamsulosin 0.4 mg capsule 0.4 mg PO QDAY insulin aspart U-100 [Novolog U-100 Insulin aspart] 100 unit/mL solution See Rx Instructions .ROUTE .COMPLEX PRN Patient Comments: INJECT 50 UNITS UNDER THE SKIN ONE TIME DAILY 90 DAYS Rx Instructions: based on insulin readings Follow ups/Referrals Follow ups/Referrals: ESTEPHANIA PRYOR [STAFF PHYSICIAN] - (Current with services at home.) Ariana DUDLEY [Primary Care Provider] - 04/19/24 2:15 pm Instructions Instructions: Hypomagnesemia, Ataxia, Fall Prevention in the Home, Dizziness Stand Alone Forms: [facility] Follow Up Care
== END 2024-04-06 13:50 | disposition home health service (06) ==
LOC: ER 15:01 → MED/SURG 15:01
PROVIDERS: ADMIT Family Medicine; ATTEND Family Medicine
DX: F03.90 Unspecified dementia, unspecified severity, without behavioral disturbance, psychotic disturbance, mood disturbance, and anxiety; R42 Dizziness and giddiness; E11.65 Type 2 diabetes mellitus with hyperglycemia; R26.89 Other abnormalities of gait and mobility; F41.8 Other specified anxiety disorders; Z29.89 Encounter for other specified prophylactic measures; I10 Essential (primary) hypertension; M62.81 Muscle weakness (generalized); I25.10 Atherosclerotic heart disease of native coronary artery without angina pectoris; K21.9 Gastro-esophageal reflux disease without esophagitis; Z79.4 Long term (current) use of insulin; U07.1 COVID-19; R94.31 Abnormal electrocardiogram [ECG] [EKG]; E83.42 Hypomagnesemia